=== PATIENT | female | born 1970 | race Caucasian/White ===

== ENCOUNTER 2019-06-27 08:12 | Inpatient (IN) | payer BC ==
[~2019-06-27] VITALS: Ht 165.1 cm; Wt 84.1 kg
[~2019-06-27 08:12] MED LIST: AZIT-63 PO; CARCD120C PO; DEXT15CA3 PO; FEXO-124 PO; LEVA15HF4 IH; TRIA1TAB3 PO; UNK BP MED; [UNRECOGNIZED DRUG - CODE] PO
[2019-06-27] MEDS ORDERED: ipratropium 0.5 MG/2.5ML nebule IH ONE (08:20)
[2019-06-27] MEDS ORDERED: methylPREDNISolone sod succ 125mg/2ml vial IV ONE (08:20)
[2019-06-27] MEDS ORDERED: normal saline 1000ML IV soln IVB ONE (08:20)
[2019-06-27] MEDS ORDERED: albuterol 2.5 MG/3 ML nebule CONTNEB PRN (08:20)
[2019-06-27 08:43] LABS: BASOPHILS # (AUTO) 0.1 X10'3 (0-0.2); BASOPHILS % (AUTO) 0.9 % (0-1); EOSINOPHILS # (AUTO) 2.5 X10'3 (0-0.9); HEMOGLOBIN 16.1 g/dl (12.0-16.0); LYMPHOCYTES # (AUTO) 4.5 X10'3 (1.1-4.8); LYMPHOCYTES % (AUTO) 28.7 % (21-51); MEAN CORPUSCULAR HEMOGLOBIN 30.2 PG (27.0-31.0); MEAN CORPUSCULAR HGB CONC 33.5 g/dL (33.0-36.5); MEAN CORPUSCULAR VOLUME 90.3 FL (78-98); MEAN PLATELET VOLUME 8.8 FL (7.4-10.4); MONOCYTES % (AUTO) 6.3 % (2-12); NEUTROPHILS # (AUTO) 7.5 X10'3 (1.8-7.7); NEUTROPHILS % (AUTO) 48.1 % (42-75); PLATELET COUNT 513 X10'3 (140-440); RED BLOOD COUNT 5.31 X10'6 (4.20-5.60); RED CELL DISTRIBUTION WIDTH 13.3 % (11.5-14.5); WHITE BLOOD COUNT 15.5 X10'3 (4.5-11.0)
[2019-06-27] MEDS ORDERED: ipratropium/albuterol 3ml nebule NEB ONE (08:45)
[2019-06-27 08:46] LABS: PARTIAL THROMBOPLASTIN TIME 26 SECONDS (22-32)
[2019-06-27] MEDS ORDERED: magnesium 2GM in 50ml NS 50 ML IV ONE (08:50)
[2019-06-27] MEDS ORDERED: azithromycin/NS 500mg/250ml 250 ML IV ONE (09:10)
[2019-06-27] MEDS ORDERED: CefTRIAXone 2gm/D5W 50ml 50 ML IV ONE (09:10)
[2019-06-27] MEDS ORDERED: LORazepam 2 mg/ml vial IV ONE ×2 (09:10→15:00)
[2019-06-27 09:19] LABS: ALANINE AMINOTRANSFERASE 19 U/L (12-78); ALBUMIN 3.6 G/DL (3.4-5.0); ALBUMIN/GLOBULIN RATIO 0.7 (1.1-1.5); ALKALINE PHOSPHATASE 131 IU/L (46-116); ASPARTATE AMINO TRANSFERASE 10 U/L (10-37); BILIRUBIN,TOTAL 0.2 MG/DL (0.1-1.0); BLOOD UREA NITROGEN 14 MG/DL (7-18); BUN/CREATININE RATIO 14.1 (6.6-38.0); CALCIUM 9.8 MG/DL (8.5-10.1); CREATININE 0.99 MG/DL (0.40-0.90); GLUCOSE 154 MG/DL (70-104); MAGNESIUM 2.1 MG/DL (1.5-2.4); TOTAL CARBON DIOXIDE 30.5 MMOL/L (24-32); TOTAL PROTEIN 8.6 G/DL (6.4-8.2); eGFR 59 ML/MIN
[2019-06-27 09:45] LABS: ABG BASE EXCESS -4.3 mmol/L (-2.0-3.0); ABG HCO3 22.2 mmol/L (22.0-26.0); ABG OXYGEN SATURATION 97.8 % (95-98); ABG PCO2 (T) 46.2 mmHg (35.0-45.0); ABG PH (T) 7.299 (7.350-7.450); ABG PO2 (T) 110.8 mmHg (83-108); ALLEN'S TEST POSITIVE; FCOHb 0.4 % (0.5-1.5); FMetHb 0.1 % (0.3-1.12); FO2Hb 97.3 % (94-100); RESPIRATORY RATE 22 b/min; TIDAL VOLUME 353 mL; TOTAL HEMOGLOBIN 13.6 G/dl (12.0-16.0)
[2019-06-27 10:04] LABS: ANION GAP 11 (8-16); CHLORIDE 103 MMOL/L (99-107); POTASSIUM 4.5 MMOL/L (3.5-5.1); SODIUM 144 MMOL/L (135-145)
--- NOTE | 2019-06-27 11:55 | NUR ---
DAUGHTER STATES THAT PATIENT HAS A WOUND ON THE BACK OF HER HEAD IN OCCIPUTAL AREA THAT HAS BEEN GETTING CLEANED AND DRESSED FOR THE PAST WEEK. PATIENT HAS NOT SEEN DOCTOR, BUT DAUGHTER CONCERNED THAT IT MAY BE MRSA+.
[2019-06-27] MEDS ORDERED: CITA40TA16 PO (12:59)
[2019-06-27] MEDS ORDERED: ALBU18HF2 INH (12:59)
[2019-06-27] MEDS ORDERED: BUDE10.2 INH (12:59)
[2019-06-27] MEDS ORDERED: GABA-530 PO (12:59)
[2019-06-27] MEDS ORDERED: LISI-600 PO (12:59)
[2019-06-27] MEDS ORDERED: VENL-191 PO (12:59)
[2019-06-27] MEDS ORDERED: ASPI-611 PO (12:59)
[2019-06-27] MEDS ORDERED: ondansetron/PF 4mg/2ml inj IV PRN (13:10)
[2019-06-27] MEDS ORDERED: acetaminophen 325mg tablet PO PRN (13:10)
[2019-06-27] MEDS ORDERED: mag hydrox/Alum hydrox/simeth 30ml oral suspension PO PRN (13:10)
[2019-06-27] MEDS ORDERED: magnesium hydroxide 30ml (MOM) UD suspension PO PRN (13:10)
[2019-06-27] MEDS ORDERED: ipratropium/albuterol 3ml nebule NEB PRN (13:35)
[2019-06-27] MEDS ORDERED: heparin 10,000 units/1 ML INJ IV ONE (13:50)
[2019-06-27] MEDS: methylPREDNISolone sod succ 125mg/2ml vial IV SCH ×2 (14:21→19:50)
[2019-06-27] MEDS: heparin 25,000 UNIT/250ml bag 250 ML IV SCH ×3 (14:24→22:00)
[2019-06-27] MEDS: normal saline 1000ml 1,000 ML IV SCH (14:25)
[2019-06-27] MEDS ORDERED: iohexol 350MG/ML 100ml bottle IV ONE (14:38)
[2019-06-27] MEDS: ipratropium/albuterol 3ml nebule NEB SCH ×3 (14:40→23:27)
[2019-06-27] MEDS ORDERED: aspirin 81mg tablet.DR PO ONE (16:10)
--- NOTE | 2019-06-27 16:43 | NUR ---
Patient in room PCU 3021. I have received report from Mer AGUILAR from ER and had the opportunity to ask questions and assume patient care. Received patient at 1620. Vitals obtained and patient hooked up to mobile monitoring. Pending return response. Pt. has yet to void since this AM, bladder scan shows 389 cc's in bladder. notified. Requested PRN Ativan for anxiety.
--- NOTE | 2019-06-27 16:48 | NUR ---
3025 Kylah orona - Patient has not voided since 0800, bladder scan shows 389 mls in bladder. Also, do you want to add PRN Ativan order for anxiety?Charlee RN, PCU
[2019-06-27 16:49] VITALS: BP 92/73
[2019-06-27 18:30] VITALS: BP 108/81
--- NOTE | 2019-06-27 18:38 | NUR ---
Patient in room PCU 3021. I have received report from Charlee AGUILAR and had the opportunity to ask questions and assume patient care.
--- NOTE | 2019-06-27 18:45 | NUR ---
Problems reprioritized. Patient report given, questions answered & plan of care reviewed with Zuhair AGUILAR.
[2019-06-27] MEDS: carVEDilol 3.125mg tablet PO SCH (19:50)
[2019-06-27] MEDS ORDERED: heparin, porcine 5000 units/ml vial SQ SCH (20:00)
--- NOTE | 2019-06-27 21:15 | NUR ---
Page Sent PAGER ID: [phone] MESSAGE: pt [id number] Kylah orona here for exac. asthma, resp failure, NSTEMI. Critical high 12 hr trop 8.24 pt on heparin gtt.
--- NOTE | 2019-06-27 21:44 | NUR ---
Notified Dr. Hahn regarding a critical high 12 hr trop of 8.24, advised Dr. Hahn pt is on heparin gtt protocol, Dr. Hahn wanted Dr. Soliz called. Dr. Soliz notified of trop 8.24 and pt currently on heparin gtt protocol, no new orders given.
[2019-06-27] MEDS: heparin 10,000 units/1 ML INJ IV PRN (21:57)
[2019-06-27 23:00] VITALS: BP 96/76
[2019-06-28] VITALS (14 sets, daily range): BP systolic 98–119; BP diastolic 63–79
[2019-06-28] MEDS: methylPREDNISolone sod succ 125mg/2ml vial IV SCH ×4 (01:59→19:40)
[2019-06-28] MEDS: normal saline 1000ml 1,000 ML IV SCH ×3 (02:35→19:47)
[2019-06-28] MEDS: ipratropium/albuterol 3ml nebule NEB SCH ×6 (03:30→23:50)
--- NOTE | 2019-06-28 05:46 | NUR ---
Page Sent PAGER ID: [phone] MESSAGE: pt [id number] adwoa Montero here for exac asthma, resp failure, has positive blood cultures: gram positive cocci in clusters in the aerobic
--- NOTE | 2019-06-28 05:58 | NUR ---
Dr. Jaeger notified + BC gram + cocci in clusters in aerobic bottle, received orders to repeat BC and he will order vancomycin.
[2019-06-28 06:04] LABS: BASOPHILS % (AUTO) 0.2 % (0-1); EOSINOPHILS % (AUTO) 0 % (0-6); HEMATOCRIT 35.1 % (35.0-45.0); HEMOGLOBIN 12.2 g/dl (12.0-16.0); MEAN CORPUSCULAR HGB CONC 34.8 g/dL (33.0-36.5); MEAN CORPUSCULAR VOLUME 89.3 FL (78-98); MEAN PLATELET VOLUME 9.2 FL (7.4-10.4); MONOCYTES # (AUTO) 0.2 X10'3 (0-0.9); MONOCYTES % (AUTO) 2.2 % (2-12); NEUTROPHILS # (AUTO) 9.9 X10'3 (1.8-7.7); NEUTROPHILS % (AUTO) 88.6 % (42-75); PLATELET COUNT 348 X10'3 (140-440); RED BLOOD COUNT 3.93 X10'6 (4.20-5.60); RED CELL DISTRIBUTION WIDTH 13.5 % (11.5-14.5); WHITE BLOOD COUNT 11.2 X10'3 (4.5-11.0)
[2019-06-28 06:11] LABS: ALBUMIN 2.4 G/DL (3.4-5.0); ANION GAP 8 (8-16); BLOOD UREA NITROGEN 16 MG/DL (7-18); BUN/CREATININE RATIO 23.2 (6.6-38.0); CALCIUM 7.8 MG/DL (8.5-10.1); CHLORIDE 112 MMOL/L (99-107); CREATININE 0.69 MG/DL (0.40-0.90); GLUCOSE 159 MG/DL (70-104); SODIUM 145 MMOL/L (135-145); TOTAL CARBON DIOXIDE 25.1 MMOL/L (24-32); eGFR 90 ML/MIN
--- NOTE | 2019-06-28 06:16 | NUR ---
Problems reprioritized. Patient report given, questions answered & plan of care reviewed with Angela AGUILAR.
[2019-06-28] MEDS: heparin 10,000 units/1 ML INJ IV PRN (06:23)
[2019-06-28] MEDS: heparin 25,000 UNIT/250ml bag 250 ML IV SCH (06:25)
--- NOTE | 2019-06-28 06:30 | NUR ---
Patient in room PCU 3021. I have received report from LAUREN Moffett and had the opportunity to ask questions and assume patient care.
--- NOTE | 2019-06-28 06:30 | NUR ---
Paged Dr. Jaeger re critical K. PAGER ID: [phone] MESSAGE: Pt Kylah Alba in 3021 has critical K at 3.0. Will replace per protocol. Thanks! Angela AGUILAR [phone]
[2019-06-28] MEDS ORDERED: tirofiban 5mg in NS 100mL 100 ML IV SCH ×2 (06:39→13:55)
[2019-06-28] MEDS ORDERED: potassium Cl 20 mEq SR tablet PO PRN (07:25)
[2019-06-28] MEDS ORDERED: tirofiban 5mg in NS 100mL 100 ML IV ONE (07:25)
[2019-06-28] MEDS: K and/or MAG REPLACEMENT MC SCH ×3 (07:25→20:00)
[2019-06-28] MEDS ORDERED: potassium CL 10mEq/100ml bag 100 ML IV PRN (07:25)
--- NOTE | 2019-06-28 07:30 | NUR ---
Called and spoke to pharmacist re interaction warning when ordering electrolyte replacement protocol. Pharmacist okayed order.
[2019-06-28] MEDS: tirofiban 5mg in NS 100mL 100 ML IV SCH ×3 (08:18→08:47)
[2019-06-28] MEDS: aspirin 81mg tablet.DR PO SCH (08:19)
[2019-06-28] MEDS: VANCOmycin 1250MG/NS 250ml Bag 250 ML IV SCH ×2 (08:19→19:40)
[2019-06-28] MEDS: atorvastatin 20mg tablet PO SCH (08:20)
[2019-06-28] MEDS: carVEDilol 3.125mg tablet PO SCH ×2 (08:20→19:40)
[2019-06-28] MEDS: potassium Cl 20 mEq SR tablet PO PRN ×2 (08:21→19:39)
[2019-06-28] MEDS: levoFLOXACIN-Levaquin 750MG/D5 150 ML IV SCH (08:22)
[2019-06-28 08:35] LABS: CHOL/HDL RATIO 3.9 (0.00-4.99); CHOLESTEROL 143 MG/DL (0-200); HDL CHOLESTEROL 37 MG/DL (35-60); LDL CHOLESTEROL 96 MG/DL (50-100); TRIGLYCERIDES 84 MG/DL (20-135)
[2019-06-28 10:06] LABS: URINE HCG NEGATIVE (NEG)
[2019-06-28 10:09] LABS: CLARITY,URINE SLIGHTLY CLOUDY (Clear); COLOR,URINE YELLOW (Yellow); GLUCOSE, URINE NEGATIVE (Neg); KETONES,URINE NEGATIVE (Neg); LEUKOCYTE ESTERASE ,URINE NEGATIVE (Neg); NITRITES, URINE NEGATIVE (Neg); OCCULT BLOOD,URINE NEGATIVE (Neg); PROTEIN,URINE NEGATIVE (Neg); UROBILINOGEN,URINE 0.2 E.U/dL (0.2-1.0)
[2019-06-28 10:11] LABS: UA COLLECTION TYPE NON-SPECIFIED; URINE AMPHETAMINE SCREEN POSITIVE (Neg); URINE BARBITUATE SCREEN NEGATIVE (Neg); URINE BENZODIAZEPINES SCREEN NEGATIVE (Neg); URINE CANNABINOID SCREEN NEGATIVE (Neg); URINE COCAINE SCREEN NEGATIVE (Neg); URINE METHADONE SCREEN NEGATIVE (Neg); URINE OPIATE SCREEN NEGATIVE (Neg); URINE PHENCYCLIDINE SCREEN NEGATIVE (Neg)
[2019-06-28 10:21] LABS: SQUAMOUS EPITHELIAL CELL,UR MODERATE /LPF (FEW)
[2019-06-28 10:23] LABS: BACTERIA,URINE FEW /HPF (Neg); RBC,URINE 0-2 /HPF (0-2); WBC,URINE 0-4 /HPF (0-4)
[2019-06-28 10:25] LABS: YEAST FEW /HPF (NEGATIVE)
[2019-06-28] MEDS: LORazepam 2 mg/ml vial IV PRN (10:56)
--- NOTE | 2019-06-28 11:35 | NUR ---
Paged Dr. Mccall re positive drug screen. PAGER ID: [phone] MESSAGE: Pt Kylah Alba in 302 + amphetamines in urine. Thanks! Angela AGUILAR [phone]
[2019-06-28 12:43] LABS: BASOPHILS # (AUTO) 0.1 X10'3 (0-0.2); BASOPHILS % (AUTO) 0.4 % (0-1); EOSINOPHILS % (AUTO) 0 % (0-6); HEMATOCRIT 39.2 % (35.0-45.0); HEMOGLOBIN 13.1 g/dl (12.0-16.0); LYMPHOCYTES # (AUTO) 1.2 X10'3 (1.1-4.8); LYMPHOCYTES % (AUTO) 6.9 % (21-51); MEAN CORPUSCULAR HEMOGLOBIN 29.9 PG (27.0-31.0); MEAN CORPUSCULAR HGB CONC 33.4 g/dL (33.0-36.5); MEAN CORPUSCULAR VOLUME 89.6 FL (78-98); MEAN PLATELET VOLUME 8.8 FL (7.4-10.4); MONOCYTES # (AUTO) 0.4 X10'3 (0-0.9); MONOCYTES % (AUTO) 2.2 % (2-12); NEUTROPHILS # (AUTO) 16.4 X10'3 (1.8-7.7); NEUTROPHILS % (AUTO) 90.5 % (42-75); PLATELET COUNT 433 X10'3 (140-440); RED BLOOD COUNT 4.38 X10'6 (4.20-5.60); RED CELL DISTRIBUTION WIDTH 13.6 % (11.5-14.5); WHITE BLOOD COUNT 18.2 X10'3 (4.5-11.0)
--- NOTE | 2019-06-28 13:48 | NUR ---
Called to speak to pharmacist re aggrastat order and time of Q 7 minutes. Pharmacist said order will be DCd. Addendum: 06/28/19 at 1354 by Mireille Galvez RN Phoned Melania Herrmann NP to verify order for Aggrastat. Provider stated medication must be a continuous drip. This RN phoned pharmacy to have order corrected.
[2019-06-28] MEDS ORDERED: midazolam 2 mg/2 ml injection ONE (16:06)
[2019-06-28] MEDS ORDERED: fentaNYL/PF 50MCG/1 ML 2ML syringe ONE (16:06)
[2019-06-28] MEDS ORDERED: iohexol 350MG/ML 100ml bottle IV ONE (16:07)
[2019-06-28] MEDS ORDERED: LIDOcaine 1% (10mg/ml)w/preservative injection 20ml MDV ONE (16:07)
[2019-06-28] MEDS ORDERED: nitroGLYCERIN-Tridil 50MG/D5W 250 ML IV ONE (16:10)
[2019-06-28] MEDS ORDERED: heparin 1,000unit/ml 10ml vial 10 ML ONE (16:10)
[2019-06-28] MEDS ORDERED: verapamil 2.5 mg/ml inj IV ONE (16:11)
--- NOTE | 2019-06-28 16:26 | NUR ---
Pt transported to laboratory analyst.
--- NOTE | 2019-06-28 17:00 | NUR ---
Pt returned to room post cath.
[2019-06-28] MEDS ORDERED: OXAZEpam 15mg capsule PO PRN (18:15)
[2019-06-28] MEDS ORDERED: ondansetron/PF 4mg/2ml inj IV PRN (18:15)
[2019-06-28] MEDS ORDERED: proCHLORperazine 10 MG/2 ml inj IV PRN (18:15)
--- NOTE | 2019-06-28 18:54 | NUR ---
Patient in room PCU 3021. I have received report from Angela AGUILAR and had the opportunity to ask questions and assume patient care.
[2019-06-28] MEDS: lactobacillus rhamnosus 10,000 MMU CELLS/CAPSULE PO SCH (19:41)
--- NOTE | 2019-06-28 20:00 | NUR ---
2mls at a time were released from right radial hemostatic wrist band. No bruising or bleeding noted and pulses intact. All 11mls have been released and after cuff fully deflated band was left on for an additional half hour and then taken off. Still no bleeding noted and site was covered up with a band aide.
[2019-06-29] MEDS: potassium Cl 20 mEq SR tablet PO PRN (00:06)
[2019-06-29] MEDS: methylPREDNISolone sod succ 125mg/2ml vial IV SCH ×2 (01:42→07:31)
[2019-06-29 02:00] VITALS: BP 115/78
--- NOTE | 2019-06-29 02:05 | NUR ---
Orientee documentation: I have reviewed and agree with all interventions, assessments performed and documented by Olive AGUILAR. [place] Medication Administration: For this medication-pass time frame, all medication were reviewed, dispensed, administered and documented per hospital policy by Olive AGUILAR.
[2019-06-29] MEDS: ipratropium/albuterol 3ml nebule NEB SCH ×6 (03:27→23:18)
[2019-06-29 05:57] LABS: BASOPHILS # (AUTO) 0.1 X10'3 (0-0.2); BASOPHILS % (AUTO) 0.5 % (0-1); EOSINOPHILS % (AUTO) 0 % (0-6); HEMATOCRIT 35.4 % (35.0-45.0); LYMPHOCYTES # (AUTO) 1.7 X10'3 (1.1-4.8); LYMPHOCYTES % (AUTO) 7.5 % (21-51); MEAN CORPUSCULAR HEMOGLOBIN 30.7 PG (27.0-31.0); MEAN CORPUSCULAR HGB CONC 34.1 g/dL (33.0-36.5); MEAN CORPUSCULAR VOLUME 90.3 FL (78-98); MEAN PLATELET VOLUME 8.7 FL (7.4-10.4); MONOCYTES # (AUTO) 0.6 X10'3 (0-0.9); MONOCYTES % (AUTO) 2.8 % (2-12); NEUTROPHILS # (AUTO) 20.5 X10'3 (1.8-7.7); NEUTROPHILS % (AUTO) 89.2 % (42-75); PLATELET COUNT 383 X10'3 (140-440); RED BLOOD COUNT 3.92 X10'6 (4.20-5.60); RED CELL DISTRIBUTION WIDTH 13.7 % (11.5-14.5)
[2019-06-29 06:00] VITALS: BP 120/74
[2019-06-29 06:21] LABS: ALBUMIN 2.6 G/DL (3.4-5.0); ANION GAP 8 (8-16); BLOOD UREA NITROGEN 23 MG/DL (7-18); BUN/CREATININE RATIO 26.7 (6.6-38.0); CALCIUM 8.4 MG/DL (8.5-10.1); CHLORIDE 110 MMOL/L (99-107); CREATININE 0.86 MG/DL (0.40-0.90); GLUCOSE 148 MG/DL (70-104); POTASSIUM 4.8 MMOL/L (3.5-5.1); SODIUM 141 MMOL/L (135-145); eGFR 70 ML/MIN
--- NOTE | 2019-06-29 06:27 | NUR ---
Problems reprioritized. Patient report given, questions answered & plan of care reviewed with Marissa AGUILAR.
[2019-06-29] MEDS: aspirin 81mg tablet.DR PO SCH (07:27)
[2019-06-29] MEDS: atorvastatin 20mg tablet PO SCH (07:27)
[2019-06-29] MEDS: VANCOmycin 1250MG/NS 250ml Bag 250 ML IV SCH ×2 (07:27→20:46)
[2019-06-29] MEDS: carVEDilol 3.125mg tablet PO SCH ×2 (07:28→20:39)
[2019-06-29] MEDS: lactobacillus rhamnosus 10,000 MMU CELLS/CAPSULE PO SCH ×2 (07:28→20:39)
[2019-06-29] MEDS: levoFLOXACIN-Levaquin 750MG/D5 150 ML IV SCH (07:31)
[2019-06-29] MEDS: normal saline 1000ml 1,000 ML IV SCH ×3 (07:31→22:00)
[2019-06-29] MEDS: K and/or MAG REPLACEMENT MC SCH ×2 (08:00→20:00)
[2019-06-29 11:00] VITALS: BP 120/74
[2019-06-29] MEDS: methylPREDNISolone sod succ/PF 40mg inj. IV SCH ×2 (14:55→20:51)
[2019-06-29 15:00] VITALS: BP 123/77
[2019-06-29 18:00] VITALS: BP 110/59
--- NOTE | 2019-06-29 18:01 | NUR ---
O2 Sat at rest on room air:_95__% If below 89%: Recovery O2 Sat at rest on ___LPM:___%:___% via (mask/nasal cannula, etc..) No further documentation is necessary. If O2 Sat did not drop below 89% on room air,ambulate patient on room air. O2 Sat while ambulating on room air:_84__% Recovery O2 Sat while ambulating on _2__LPM:___% No further documentation is necessary. If patient does not drop below 89% while ambulating, he/she does not qualify for home O2.
--- NOTE | 2019-06-29 18:03 | NUR ---
Problems reprioritized. Patient report given, questions answered & plan of care reviewed with [].
--- NOTE | 2019-06-29 18:20 | NUR ---
Problems reprioritized. Patient report given, questions answered & plan of care reviewed with LAUREN Blank.
--- NOTE | 2019-06-29 18:27 | NUR ---
Problems reprioritized. Patient report given, questions answered & plan of care reviewed with LAUREN Blank.
--- NOTE | 2019-06-29 18:49 | NUR ---
Patient in room PCU 3021. I have received report from LAUREN Ann and had the opportunity to ask questions and assume patient care.
[2019-06-29] MEDS ORDERED: VANCOMYCIN LEVEL IV ONE (19:30)
[2019-06-29] MEDS ORDERED: temazepam 15mg capsule PO PRN (21:00)
[2019-06-29] MEDS: lisinopril 2.5mg tablet PO SCH (21:30)
[2019-06-29 22:00] VITALS: BP 135/81
[2019-06-30] VITALS (7 sets, daily range): BP systolic 94–152; BP diastolic 61–105
--- NOTE | 2019-06-30 02:50 | NUR ---
PAGER ID: [phone] MESSAGE: Kylah Alba U [id number] requesting sleeping pill. Thanks, Molly ALEJANDRE gave a new order for Restoril. Will monitor patient closely.
[2019-06-30] MEDS: methylPREDNISolone sod succ/PF 40mg inj. IV SCH ×4 (02:57→19:34)
[2019-06-30] MEDS: ipratropium/albuterol 3ml nebule NEB SCH ×6 (03:19→23:35)
[2019-06-30] MEDS: LORazepam 2 mg/ml vial IV PRN (04:45)
--- NOTE | 2019-06-30 05:10 | NUR ---
Patient states she is feeling anxiety, short of breath, and a heaviness in her chest/upper abdomen with pain level of 5. This happened while patient was lying in bed. Denies burning pain,sharpness, or cramping. An EKG was done per protocol and showed sinus rhythm. The heart cath done on 06/28/2019 showed less than 10% stenosis and stated to be suggestive of Takotsubo. Ativan 0.5mg was given per order. Vital signs were 147/89, RR22, SpO2 was 90% on 2L NC, 97.7F, HR 87. Will continue to monitor closely.
[2019-06-30] MEDS ORDERED: furosemide 40mg/4ml inj ONE (05:48)
[2019-06-30 05:56] LABS: ABG BASE EXCESS -9.7 mmol/L (-2.0-3.0); ABG HCO3 17.5 mmol/L (22.0-26.0); ABG OXYGEN SATURATION 89.1 % (95-98); ABG PCO2 (T) 42.5 mmHg (35.0-45.0); ABG PH (T) 7.231 (7.350-7.450); ABG PO2 (T) 63.2 mmHg (83-108); ALLEN'S TEST POSITIVE; FCOHb 0.3 % (0.5-1.5); FLOW 12 L/min; FMetHb 0.2 % (0.3-1.12); FO2Hb 88.7 % (94-100); PATIENT TEMPERATURE 36.6; TOTAL HEMOGLOBIN 14.6 G/dl (12.0-16.0)
[2019-06-30 05:59] LABS: BASOPHILS # (AUTO) 0.1 X10'3 (0-0.2); BASOPHILS % (AUTO) 0.5 % (0-1); EOSINOPHILS % (AUTO) 0 % (0-6); MEAN CORPUSCULAR HEMOGLOBIN 30.9 PG (27.0-31.0); MEAN CORPUSCULAR HGB CONC 34.2 g/dL (33.0-36.5); MEAN CORPUSCULAR VOLUME 90.5 FL (78-98); MEAN PLATELET VOLUME 8.7 FL (7.4-10.4); MONOCYTES # (AUTO) 0.8 X10'3 (0-0.9); MONOCYTES % (AUTO) 2.7 % (2-12); NEUTROPHILS # (AUTO) 25.9 X10'3 (1.8-7.7); NEUTROPHILS % (AUTO) 89.8 % (42-75); PLATELET COUNT 452 X10'3 (140-440); RED CELL DISTRIBUTION WIDTH 13.7 % (11.5-14.5)
[2019-06-30] MEDS ORDERED: morphine 4 MG/ML inj SYRINge ONE (06:01)
[2019-06-30 06:04] LABS: WHITE BLOOD COUNT 28.8 X10'3 (4.5-11.0)
--- NOTE | 2019-06-30 06:05 | NUR ---
Paged Dr. Jaeger re critical WBC. PAGER ID: [phone] MESSAGE: Pt Kylah Alba in 302 has critical WBC of 28.8. Thanks! jayne AGUILAR [phone]
[2019-06-30] MEDS ORDERED: furosemide 40mg/4ml inj IV ONE (06:15)
--- NOTE | 2019-06-30 06:20 | NUR ---
Patient in room PCU 3021. I have received report from LAUREN Barnes and had the opportunity to ask questions and assume patient care.
--- NOTE | 2019-06-30 06:22 | NUR ---
Dr. Jaeger at bedside, orders received for 2mg additional morphine if most recent dose of lasix ineffective. Addendum: 06/30/19 at 0623 by Mireille Galvez RN MD ordered no bipap for pt.
[2019-06-30 06:24] LABS: ALBUMIN 2.7 G/DL (3.4-5.0); ANION GAP 8 (8-16); BLOOD UREA NITROGEN 21 MG/DL (7-18); BUN/CREATININE RATIO 27.6 (6.6-38.0); CALCIUM 8.3 MG/DL (8.5-10.1); CHLORIDE 108 MMOL/L (99-107); CREATININE 0.76 MG/DL (0.40-0.90); GLUCOSE 138 MG/DL (70-104); POTASSIUM 4.4 MMOL/L (3.5-5.1); SODIUM 138 MMOL/L (135-145); TOTAL CARBON DIOXIDE 22.2 MMOL/L (24-32); eGFR 81 ML/MIN
[2019-06-30 06:28] LABS: TROPONIN I 3.35 NG/ML (0.0-0.05)
--- NOTE | 2019-06-30 06:34 | NUR ---
Rapid Response around 0550 On arrival to bedside, the patient was 69% on 2L NC SOB RR 30, BP 136/80, HR 129, Temp 97.6F, skin color was ojeda/blue in the face, skin diaphoretic. Interventions: [Mil at bedside. Diaz Cathether with 400ml output, Lasix 4mg stat, morphine 2mg stat, and lasix 5 mins later because patient was still gurgling, Chest Xray and ABG were also taken. Blood sugar 167.] Rapid response outcome: [Vital signs 95% with face mask, RR 22, BP150/101, skin color normal, RT will place the patient on high flow.
--- NOTE | 2019-06-30 06:36 | NUR ---
Josh zuniga critical troponin. PAGER ID: [phone] MESSAGE: Liam Alba in 3021 critical trop of 3.35. Thanks! Angela [id number] Addendum: 06/30/19 at 0637 by Mireille Galvez RN Dr. Mil ding stat EKG.
--- NOTE | 2019-06-30 06:42 | NUR ---
Problems reprioritized. Patient report given, questions answered & plan of care reviewed with LAUREN Kendrick.
[2019-06-30 06:44] LABS: PLATELET ESTIMATE INCREASED; TOTAL CELLS COUNTED 100
--- NOTE | 2019-06-30 06:49 | NUR ---
Paged Dr. Jaeger re EKG completion. PAGER ID: [phone] MESSAGE: Liam Alba in 3021 EKG resulted. [phone] Addendum: 06/30/19 at 0757 by Mireille Galvez RN Dr. Jaeger arrived at bedside at 0655 to read EKG. Orders received to D/C IV fluids.
[2019-06-30] MEDS: carVEDilol 3.125mg tablet PO SCH ×2 (08:00→19:34)
[2019-06-30] MEDS: K and/or MAG REPLACEMENT MC SCH ×2 (08:00→19:33)
[2019-06-30] MEDS: levoFLOXACIN-Levaquin 750MG/D5 150 ML IV SCH (08:52)
[2019-06-30] MEDS: atorvastatin 20mg tablet PO SCH (08:53)
[2019-06-30] MEDS: lactobacillus rhamnosus 10,000 MMU CELLS/CAPSULE PO SCH ×2 (08:53→19:34)
[2019-06-30] MEDS: aspirin 81mg tablet.DR PO SCH (08:53)
[2019-06-30] MEDS ORDERED: iohexol 300mg/ml 100ml inj. ONE (11:02)
[2019-06-30] MEDS: potassium Cl 20 mEq SR tablet PO SCH (17:40)
--- NOTE | 2019-06-30 18:15 | NUR ---
Problems reprioritized. Patient report given, questions answered & plan of care reviewed with LAUREN Barnes.
[2019-06-30] MEDS: furosemide 40mg/4ml inj IV SCH (19:34)
[2019-06-30] MEDS: lisinopril 2.5mg tablet PO SCH (20:45)
--- NOTE | 2019-06-30 21:42 | NUR ---
Patient in room PCU 3021. I have received report from LAUREN Kendrick and had the opportunity to ask questions and assume patient care.
[2019-07-01] MEDS: methylPREDNISolone sod succ/PF 40mg inj. IV SCH ×3 (02:03→20:30)
[2019-07-01 02:22] VITALS: BP 92/66
[2019-07-01] MEDS: ipratropium/albuterol 3ml nebule NEB SCH ×6 (03:43→23:56)
--- NOTE | 2019-07-01 06:16 | NUR ---
Problems reprioritized. Patient report given, questions answered & plan of care reviewed with LAUREN Anderson.
--- NOTE | 2019-07-01 06:21 | NUR ---
Patient in room PCU 3021. I have received report from LAUREN Barnes and had the opportunity to ask questions and assume patient care. Patient asleep in bed and in no acute distress.
[2019-07-01 06:35] LABS: BASOPHILS % (AUTO) 0.1 % (0-1); EOSINOPHILS % (AUTO) 0 % (0-6); HEMATOCRIT 35.5 % (35.0-45.0); LYMPHOCYTES # (AUTO) 1.9 X10'3 (1.1-4.8); LYMPHOCYTES % (AUTO) 10.8 % (21-51); MEAN CORPUSCULAR HEMOGLOBIN 30.5 PG (27.0-31.0); MEAN CORPUSCULAR HGB CONC 33.9 g/dL (33.0-36.5); MEAN CORPUSCULAR VOLUME 89.9 FL (78-98); MONOCYTES # (AUTO) 0.5 X10'3 (0-0.9); MONOCYTES % (AUTO) 2.9 % (2-12); NEUTROPHILS # (AUTO) 15.3 X10'3 (1.8-7.7); NEUTROPHILS % (AUTO) 86.2 % (42-75); PLATELET COUNT 347 X10'3 (140-440); RED BLOOD COUNT 3.95 X10'6 (4.20-5.60); RED CELL DISTRIBUTION WIDTH 13.9 % (11.5-14.5); WHITE BLOOD COUNT 17.7 X10'3 (4.5-11.0)
[2019-07-01 07:00] VITALS: BP 106/70
[2019-07-01 07:01] LABS: ALBUMIN 2.5 G/DL (3.4-5.0); ANION GAP 7 (8-16); BLOOD UREA NITROGEN 25 MG/DL (7-18); BUN/CREATININE RATIO 29.4 (6.6-38.0); CALCIUM 8.3 MG/DL (8.5-10.1); CHLORIDE 103 MMOL/L (99-107); CREATININE 0.85 MG/DL (0.40-0.90); GLUCOSE 133 MG/DL (70-104); POTASSIUM 4.1 MMOL/L (3.5-5.1); SODIUM 139 MMOL/L (135-145); TOTAL CARBON DIOXIDE 28.6 MMOL/L (24-32); eGFR 71 ML/MIN
[2019-07-01] MEDS: K and/or MAG REPLACEMENT MC SCH ×2 (08:00→20:00)
[2019-07-01] MEDS: atorvastatin 20mg tablet PO SCH (08:04)
[2019-07-01] MEDS: levoFLOXACIN-Levaquin 750MG/D5 150 ML IV SCH (08:05)
[2019-07-01] MEDS: carVEDilol 3.125mg tablet PO SCH ×2 (08:05→20:30)
[2019-07-01] MEDS: aspirin 81mg tablet.DR PO SCH (08:05)
[2019-07-01] MEDS: potassium Cl 20 mEq SR tablet PO SCH ×2 (08:05→17:46)
[2019-07-01] MEDS: furosemide 40mg/4ml inj IV SCH ×2 (08:05→20:29)
[2019-07-01] MEDS: lactobacillus rhamnosus 10,000 MMU CELLS/CAPSULE PO SCH ×2 (08:05→20:29)
[2019-07-01 11:00] VITALS: BP 118/78
--- NOTE | 2019-07-01 13:11 | NUR ---
Problems reprioritized. Patient report given, questions answered & plan of care reviewed with LAUREN Galarza. Patient stable at transfer of care.
--- NOTE | 2019-07-01 14:44 | NUR ---
Initial: patient presented to ED with exacerbation of asthma, admitted for treatment of asthma exacerbation, acute respiratory failure with hypoxia, encephalopathy, pulmonary edema, sepsis, and history of meth abuse all per MD note. Pt seen at bedside with sister present provided with written and verbal protein education with RD contact information. Pt agrees to yogurt BIDBL, d/w dietary. Pt endorses a good appetite which is evident with documented average 75-100% PO intake on heart healthy diet. Pt denies food allergies and reports difficulty swallowing meat at times d/t being too tough. Pt reports she has been receiving grind meat and hasn't had any issues with it and denies further texture modification. Pt denies constipation/diarrhea. LBM 2/. Will continue to follow. Recommend: 1. continue heart healthy diet with grind meat per pt request 2. low fat yogurt BIDBL 3. continue bowel care as needed 4. weight per rx Addendum: 07/01/19 at [address] Amended: Links added.
[2019-07-01 15:00] VITALS: BP 114/70
[2019-07-01] MEDS: clindamycin 150mg capsule PO SCH ×2 (15:02→20:29)
[2019-07-01 18:00] VITALS: BP 118/75
--- NOTE | 2019-07-01 18:30 | NUR ---
Problems reprioritized. Patient report given, questions answered & plan of care reviewed with Cesia AGUILAR.
--- NOTE | 2019-07-01 18:39 | NUR ---
I have reviewed and agree with all medications administered and interventions performed by TACTICAL [employer] DEFENSE CONTROLLER Student, Melani Barahona.
--- NOTE | 2019-07-01 18:52 | NUR ---
Patient in room U 3021. I have received report from LAUREN CAMPOVERDE and had the opportunity to ask questions and assume patient care. Addendum: 07/01/19 at 1852 by Shayla Carter RN Amended: Links added.
[2019-07-01] MEDS ORDERED: VANCOMYCIN LEVEL IV ONE (19:30)
[2019-07-01] MEDS: lisinopril 2.5mg tablet PO SCH (20:30)
[2019-07-01 22:00] VITALS: BP 106/65
[2019-07-02] MEDS: clindamycin 150mg capsule PO SCH ×2 (01:39→07:47)
[2019-07-02 02:00] VITALS: BP 103/64
[2019-07-02] MEDS: ipratropium/albuterol 3ml nebule NEB SCH ×3 (02:53→11:32)
[2019-07-02 06:00] VITALS: BP 104/65
--- NOTE | 2019-07-02 06:12 | NUR ---
Problems reprioritized. Patient report given, questions answered & plan of care reviewed with LAUREN Galarza.
--- NOTE | 2019-07-02 06:13 | NUR ---
Patient in room PCU 3021. I have received report from Cesia AGUILAR and had the opportunity to ask questions and assume patient care.
[2019-07-02 06:50] LABS: BASOPHILS # (AUTO) 0.1 X10'3 (0-0.2); BASOPHILS % (AUTO) 0.6 % (0-1); EOSINOPHILS % (AUTO) 0.1 % (0-6); HEMATOCRIT 36.9 % (35.0-45.0); HEMOGLOBIN 12.8 g/dl (12.0-16.0); LYMPHOCYTES # (AUTO) 2.8 X10'3 (1.1-4.8); LYMPHOCYTES % (AUTO) 16.7 % (21-51); MEAN CORPUSCULAR HEMOGLOBIN 30.7 PG (27.0-31.0); MEAN CORPUSCULAR HGB CONC 34.8 g/dL (33.0-36.5); MEAN CORPUSCULAR VOLUME 88.4 FL (78-98); MONOCYTES # (AUTO) 0.9 X10'3 (0-0.9); MONOCYTES % (AUTO) 5.5 % (2-12); NEUTROPHILS % (AUTO) 77.1 % (42-75); PLATELET COUNT 396 X10'3 (140-440); RED BLOOD COUNT 4.18 X10'6 (4.20-5.60); RED CELL DISTRIBUTION WIDTH 13.4 % (11.5-14.5); WHITE BLOOD COUNT 16.9 X10'3 (4.5-11.0)
[2019-07-02 06:55] LABS: ALBUMIN 2.6 G/DL (3.4-5.0); ANION GAP 8 (8-16); BLOOD UREA NITROGEN 28 MG/DL (7-18); BUN/CREATININE RATIO 32.2 (6.6-38.0); CALCIUM 8.3 MG/DL (8.5-10.1); CHLORIDE 101 MMOL/L (99-107); CREATININE 0.87 MG/DL (0.40-0.90); GLUCOSE 109 MG/DL (70-104); POTASSIUM 3.4 MMOL/L (3.5-5.1); SODIUM 138 MMOL/L (135-145); TOTAL CARBON DIOXIDE 29.3 MMOL/L (24-32); eGFR 69 ML/MIN
[2019-07-02] MEDS ORDERED: potassium Cl 20 mEq SR tablet PO PRN ×2 (07:30)
[2019-07-02] MEDS: levoFLOXACIN-Levaquin 750MG/D5 150 ML IV SCH (07:47)
[2019-07-02] MEDS: furosemide 40mg/4ml inj IV SCH (07:47)
[2019-07-02] MEDS: methylPREDNISolone sod succ/PF 40mg inj. IV SCH (07:47)
[2019-07-02] MEDS: atorvastatin 20mg tablet PO SCH (07:48)
[2019-07-02] MEDS: potassium Cl 20 mEq SR tablet PO SCH ×2 (07:48→09:05)
[2019-07-02] MEDS: lactobacillus rhamnosus 10,000 MMU CELLS/CAPSULE PO SCH (07:48)
[2019-07-02] MEDS: carVEDilol 3.125mg tablet PO SCH (07:48)
[2019-07-02] MEDS: aspirin 81mg tablet.DR PO SCH (07:49)
[2019-07-02] MEDS: K and/or MAG REPLACEMENT MC SCH (08:00)
[2019-07-02 08:25] LABS: TOTAL CELLS COUNTED 100
[2019-07-02 08:27] LABS: PLATELET ESTIMATE NORMAL
[2019-07-02 08:28] LABS: LARGE PLATELETS FEW; POLYCHROMASIA 1+; TOXIC GRANULATION 1+; TOXIC VACUOLATION FEW
--- NOTE | 2019-07-02 10:15 | NUR ---
Pt ambulated 600 feet on RA, no complaints of SOB or weakness.
[2019-07-02 11:00] VITALS: BP 118/80
[2019-07-02] MEDS ORDERED: COR3.125T PO (11:32)
[2019-07-02] MEDS ORDERED: ATOR20TA66 PO (11:32)
[2019-07-02] MEDS ORDERED: FURO-150 PO (11:32)
[2019-07-02] MEDS ORDERED: LISI2.5T2 PO (11:32)
[2019-07-02] MEDS ORDERED: CLE150C PO (11:32)
[2019-07-02] MEDS ORDERED: PRED20TA PO (11:32)
[2019-07-02] MEDS ORDERED: POTA10TA36 PO (12:29)
[2019-07-02] MEDS ORDERED: METH4TAB81 PO (12:29)
--- NOTE | 2019-07-02 13:20 | NUR ---
Pt DC'd home with sister. IV removed, canula intact. Tele-box removed and returned to [employer]. Pt alert/oriented and Vital signs WNL upon DC. DC paperwork gone over with Pt and sister. Allowed both Pt and sister to ask questions concerning DC and then answered them. New prescriptions faxed over to [facility]. Pt stated that she will make follow up appt with PCP within 1 week. Pt will also make follow up appt with Dr. Barroso office within [address] Barroso office closed on weekends so nurse could not make follow up appt before DC. Pt's belongings gathered and sent with Pt. Pt wheeled down to lobby in wheelchair by aid. Pt left with sister in private vehicle for home.
== END 2019-07-02 13:25 | disposition home or self-care (01) | DRG 871 ==
LOC: ER 08:13 → ED HOLD 13:12 → PCU 3S 16:03
PROVIDERS: ADMIT Family Medicine; ATTEND Family Medicine
PROC: 5A09357 Assistance with Respiratory Ventilation, Less than 24 Consecutive Hours, Continuous Positive Airway Pressure (ICD-10-PCS; 2019-06-27)
PROC: B32T1ZZ Computerized Tomography (CT Scan) of Left Pulmonary Artery using Low Osmolar Contrast (ICD-10-PCS; 2019-06-27)
PROC: B3201ZZ Computerized Tomography (CT Scan) of Thoracic Aorta using Low Osmolar Contrast (ICD-10-PCS; 2019-06-27)
PROC: B32S1ZZ Computerized Tomography (CT Scan) of Right Pulmonary Artery using Low Osmolar Contrast (ICD-10-PCS; 2019-06-27)
PROC: 4A023N7 Measurement of Cardiac Sampling and Pressure, Left Heart, Percutaneous Approach (ICD-10-PCS; principal; 2019-06-28)
PROC: B2111ZZ Fluoroscopy of Multiple Coronary Arteries using Low Osmolar Contrast (ICD-10-PCS; 2019-06-28)
PROC: B2151ZZ Fluoroscopy of Left Heart using Low Osmolar Contrast (ICD-10-PCS; 2019-06-28)
PROC: BW2F1ZZ Computerized Tomography (CT Scan) of Neck using Low Osmolar Contrast (ICD-10-PCS; 2019-06-30)
DX: A41.9 Sepsis, unspecified organism (principal); I21.4 Non-ST elevation (NSTEMI) myocardial infarction; J96.01 Acute respiratory failure with hypoxia; J96.02 Acute respiratory failure with hypercapnia; G92 Toxic encephalopathy; J44.1 Chronic obstructive pulmonary disease with (acute) exacerbation; J45.901 Unspecified asthma with (acute) exacerbation; I51.81 Takotsubo syndrome; G93.1 Anoxic brain damage, not elsewhere classified; J81.1 Chronic pulmonary edema; T43.621A Poisoning by amphetamines, accidental (unintentional), initial encounter; E66.9 Obesity, unspecified; F32.9 Major depressive disorder, single episode, unspecified; F15.10 Other stimulant abuse, uncomplicated; E87.6 Hypokalemia; G62.9 Polyneuropathy, unspecified; I10 Essential (primary) hypertension; I25.10 Atherosclerotic heart disease of native coronary artery without angina pectoris; I25.2 Old myocardial infarction; Z88.8 Allergy status to other drugs, medicaments and biological substances; Z68.30 Body mass index [BMI] 30.0-30.9, adult; Z79.899 Other long term (current) drug therapy; Z79.82 Long term (current) use of aspirin; Y92.89 Other specified places as the place of occurrence of the external cause
CPT/HCPCS: 36415; 36600; 70491; 71045; 71275; 80048; 80053; 80061; 80202; 80305; 81001; 81025; 82803; 82948; 83605; 83735; 83880; 84145; 84484; 85018; 85025; 85610; 85730; 87040; 87070; 87077; 87081; 87186; 87502; 87503; 93005; 93306; 93458; 94640; 94660; 94760; 96365; 96366; 96368; 96375; 99152; 99291; A5120; A6258; C1769; C1894; G0378; J0456; J0696; J1644; J1940; J1956; J2001; J2060; J2250; J2270; J2920; J2930; J3010; J3246; J3370; J3475; J3490; J7030; Q9967

== ENCOUNTER 2019-08-21 01:13 | Inpatient (IN) | payer BC ==
[~2019-08-21] VITALS: Ht 170.2 cm; Wt 87.7 kg
[2019-08-21] VITALS (20 sets, daily range): BP systolic 84–117; BP diastolic 47–68
[~2019-08-21 01:13] MED LIST changes: +ALBU18HF2 INH; +ASPI-611 PO; +ATOR20TA66 PO; -AZIT-63 PO; +BUDE10.2 INH; -CARCD120C PO; +CITA40TA16 PO; +CLE150C PO; +COR3.125T PO; -DEXT15CA3 PO; +FURO-150 PO; +GABA-530 PO; -LEVA15HF4 IH; +LISI2.5T2 PO; +METH4TAB81 PO; +POTA10TA36 PO; -TRIA1TAB3 PO; -UNK BP MED; +VENL-191 PO; -[UNRECOGNIZED DRUG - CODE] PO
[2019-08-21] MEDS ORDERED: etomidate 2mg/ml inj. IV ONE (01:18)
[2019-08-21] MEDS ORDERED: rocuronium 10mg/ml inj IV ONE (01:18)
[2019-08-21] MEDS ORDERED: propofol 1000mg/100ml bottle 100 ML IV ONE (01:30)
[2019-08-21] MEDS ORDERED: albuterol 2.5 MG/3 ML nebule ONE (01:35)
[2019-08-21] MEDS ORDERED: methylPREDNISolone sod succ 125mg/2ml vial IV ONE (01:55)
[2019-08-21] MEDS ORDERED: albuterol 2.5 MG/3 ML nebule NEB ONE ×3 (01:55→02:20)
[2019-08-21 01:56] LABS: ABG BASE EXCESS -11.6 mmol/L (-2.0-3.0); ABG OXYGEN SATURATION 99.5 % (95-98); ABG PH (T) 7.106 (7.350-7.450); ALLEN'S TEST POSITIVE; FCOHb 0.1 % (0.5-1.5); FMetHb 0.4 % (0.3-1.12); PATIENT TEMPERATURE 36.2; PEEP 5 cm H2O; RESPIRATORY RATE 18 b/min; TIDAL VOLUME 425 mL; TOTAL HEMOGLOBIN 14.8 G/dl (12.0-16.0)
[2019-08-21 02:05] LABS: BASOPHILS # (AUTO) 0.2 X10'3 (0-0.2); BASOPHILS % (AUTO) 1.1 % (0-1); EOSINOPHILS # (AUTO) 2.3 X10'3 (0-0.9); EOSINOPHILS % (AUTO) 12.7 % (0-6); HEMATOCRIT 43.4 % (35.0-45.0); HEMOGLOBIN 13.8 g/dl (12.0-16.0); LYMPHOCYTES # (AUTO) 7.4 X10'3 (1.1-4.8); LYMPHOCYTES % (AUTO) 40.7 % (21-51); MEAN CORPUSCULAR HEMOGLOBIN 29.8 PG (27.0-31.0); MEAN CORPUSCULAR HGB CONC 31.8 g/dL (33.0-36.5); MEAN CORPUSCULAR VOLUME 93.6 FL (78-98); MONOCYTES # (AUTO) 0.8 X10'3 (0-0.9); MONOCYTES % (AUTO) 4.6 % (2-12); NEUTROPHILS # (AUTO) 7.5 X10'3 (1.8-7.7); NEUTROPHILS % (AUTO) 40.9 % (42-75); PLATELET COUNT 308 X10'3 (140-440); RED BLOOD COUNT 4.64 X10'6 (4.20-5.60); RED CELL DISTRIBUTION WIDTH 13.5 % (11.5-14.5); WHITE BLOOD COUNT 18.3 X10'3 (4.5-11.0)
[2019-08-21] MEDS ORDERED: magnesium 2GM in 50ml NS 50 ML IV PRN (02:20)
[2019-08-21] MEDS ORDERED: magnesium Cl slow-release 64mg tablet PO PRN (02:20)
[2019-08-21] MEDS ORDERED: morphine 2 MG/ML inj. syringe IV PRN (02:20)
[2019-08-21] MEDS ORDERED: magnesium 4gm in 100ml NS 100 ML IV PRN (02:20)
[2019-08-21] MEDS ORDERED: ondansetron/PF 4mg/2ml inj IV PRN (02:20)
[2019-08-21] MEDS ORDERED: potassium CL 10mEq/100ml bag 100 ML IV PRN (02:20)
[2019-08-21] MEDS ORDERED: potassium Cl 20 mEq SR tablet PO PRN ×2 (02:20)
[2019-08-21] MEDS ORDERED: acetaminophen 325mg tablet PO PRN (02:20)
[2019-08-21] MEDS ORDERED: LIDOcaine 2% 10ml TOPICAL JELLY (Urojet) TP ONE (02:20)
[2019-08-21] MEDS ORDERED: acetaminophen 650mg rectal suppository RC PRN (02:20)
[2019-08-21] MEDS ORDERED: morphine 4 MG/ML inj SYRINge IV PRN (02:20)
[2019-08-21] MEDS: K, MAG and/or Phos replacement - Verify level? MC SCH ×2 (02:20→06:39)
[2019-08-21 02:27] LABS: ALANINE AMINOTRANSFERASE 22 U/L (12-78); ALBUMIN 3.1 G/DL (3.4-5.0); ALBUMIN/GLOBULIN RATIO 0.8 (1.1-1.5); ALKALINE PHOSPHATASE 131 IU/L (46-116); ANION GAP 11 (8-16); ASPARTATE AMINO TRANSFERASE 26 U/L (10-37); BILIRUBIN,TOTAL 0.4 MG/DL (0.1-1.0); BLOOD UREA NITROGEN 12 MG/DL (7-18); BUN/CREATININE RATIO 10.8 (6.6-38.0); CALCIUM 8.2 MG/DL (8.5-10.1); CHLORIDE 103 MMOL/L (99-107); CREATININE 1.11 MG/DL (0.40-0.90); GLUCOSE 352 MG/DL (70-104); SODIUM 139 MMOL/L (135-145); TOTAL CARBON DIOXIDE 24.6 MMOL/L (24-32); TOTAL PROTEIN 6.9 G/DL (6.4-8.2); eGFR 52 ML/MIN
[2019-08-21 02:28] LABS: POTASSIUM 4.1 MMOL/L (3.5-5.1)
[2019-08-21 02:33] LABS: PARTIAL THROMBOPLASTIN TIME 25 SECONDS (22-32)
[2019-08-21] MEDS ORDERED: CefTRIAXone/D5W-Rocephin 1gm 50 ML IV ONE (02:35)
[2019-08-21] MEDS ORDERED: ATOR40TA PO (02:36)
[2019-08-21] MEDS ORDERED: CARV3.122 PO (02:36)
[2019-08-21 02:39] LABS: C-REACTIVE PROTEIN < 0.05 MG/DL (0.0-0.5)
[2019-08-21] MEDS ORDERED: LISI40TA4 PO (02:40)
[2019-08-21] MEDS ORDERED: ALPR-384 PO (02:53)
[2019-08-21] MEDS ORDERED: GABA-530 PO (02:53)
--- NOTE | 2019-08-21 03:15 | NUR ---
Pt had episode of hypotension with propofol drip, drip stopped for approx 30 mins pt only movement was left arm movement. BP normalized, propofol restarted.
[2019-08-21] MEDS ORDERED: CISatracurium **Bolus** 2 mg/ml inj IV PRN (03:30)
[2019-08-21] MEDS ORDERED: CISatracurium besylate inj. 200 MG in normal saline 250ml IV soln 180 ML IV PRN (03:30)
--- NOTE | 2019-08-21 03:31 | NUR ---
Called report to Judson AGUILAR, pt condition and treatment plan discussed, pt to be transported on tele by RN with medications running.
[2019-08-21] MEDS ORDERED: CISatracurium besylate inj. 100 MG in normal saline 100ml IV soln 90 ML IV PRN (03:40)
[2019-08-21 03:46] LABS: PLATELET ESTIMATE NORMAL; TOTAL CELLS COUNTED 100
[2019-08-21] MEDS ORDERED: rocuronium bromide 100mg/10ml (10mg/ml) injection IV ONE (04:00)
[2019-08-21] MEDS ORDERED: etomidate 2mg/ml inj. ONE (04:00)
--- NOTE | 2019-08-21 04:06 | NUR ---
Called Eitan Jacinto NP, regarding TTM, patient is opening eyes to voice and moving all extremities, per Eitan Jacinto NP no TTM/hypothermia management at this time
[2019-08-21] MEDS: ipratropium/albuterol 3ml nebule NEB SCH ×6 (04:28→22:52)
[2019-08-21] MEDS: midazolam 100mg in NS 100ml 100 ML IV PRN ×2 (04:47→12:29)
[2019-08-21] MEDS: FENTANYL-0.9 % NACL/PF 100 ML IV PRN ×2 (04:48→19:53)
--- NOTE | 2019-08-21 06:30 | NUR ---
Patient in room ICU 2046. I have received report from Judson AGUILAR and had the opportunity to ask questions and assume patient care.
[2019-08-21] MEDS: methylPREDNISolone sod succ/PF 40mg inj. IV SCH ×3 (07:12→20:09)
[2019-08-21] MEDS: pantoprazole 40 MG vial IV SCH (07:12)
[2019-08-21] MEDS: azithromycin/NS 500mg/250ml 250 ML IV SCH (07:12)
[2019-08-21] MEDS: enoxaparin 40mg/0.4ml syringe SUBCUT SCH (07:12)
[2019-08-21] MEDS: CefTRIAXone 2gm/D5W 50ml 50 ML IV SCH (08:00)
--- NOTE | 2019-08-21 09:21 | NUR ---
Left upper shoulder Interosseus Line removed. No abnormal bleeding or bruising at the site, sterile 4x4 applied and covered site with silk tape. Patient is intubated but grimaced and pulled away at any touch or movement of IO, so bolus of fentanyl (25mcg) given. Site is clean, dry, and intact. PIV x2 still in place.
[2019-08-21] MEDS ORDERED: ALBUTEROL INHALER 1 PUFF/90 MCG INHALER IH PRN (09:25)
[2019-08-21] MEDS ORDERED: albuterol 2.5 MG/3 ML nebule NEB PRN ×2 (09:35)
[2019-08-21 09:39] LABS: ANION GAP 10 (8-16); BLOOD UREA NITROGEN 14 MG/DL (7-18); BUN/CREATININE RATIO 14.7 (6.6-38.0); CALCIUM 8.1 MG/DL (8.5-10.1); CHLORIDE 109 MMOL/L (99-107); CREATININE 0.95 MG/DL (0.40-0.90); GLUCOSE 182 MG/DL (70-104); MAGNESIUM 1.7 MG/DL (1.5-2.4); POTASSIUM 3.4 MMOL/L (3.5-5.1); SODIUM 141 MMOL/L (135-145); TOTAL CARBON DIOXIDE 22.4 MMOL/L (24-32); eGFR 62 ML/MIN
[2019-08-21] MEDS: carVEDilol 3.125mg tablet PO SCH ×2 (09:42→20:09)
[2019-08-21] MEDS: potassium CL 10mEq/100ml bag 100 ML IV PRN ×5 (09:49→13:35)
[2019-08-21] MEDS: loratadine 10mg tablet PO SCH (09:57)
[2019-08-21] MEDS: furosemide 20MG tablet PO SCH (09:57)
[2019-08-21] MEDS: citalopram 20mg tablet PO SCH (09:57)
[2019-08-21] MEDS: atorvastatin 20mg tablet PO SCH (09:57)
[2019-08-21] MEDS: aspirin 81mg tablet.DR PO SCH (09:57)
[2019-08-21] MEDS: normal saline 1000ml 1,000 ML IV SCH (10:33)
[2019-08-21] MEDS: budesonide 0.5mg/2ml UD nebule IH SCH ×2 (11:26→19:37)
[2019-08-21 12:07] LABS: CKMB RELATIVE INDEX 3.1 RATIO (0-2.5); TROPONIN I 0.13 NG/ML (0.0-0.05)
[2019-08-21] MEDS: gabapentin 100mg capsule PO SCH ×2 (12:24→20:09)
[2019-08-21 15:52] LABS: ANION GAP 12 (8-16); BLOOD UREA NITROGEN 13 MG/DL (7-18); CHLORIDE 108 MMOL/L (99-107); GLUCOSE 152 MG/DL (70-104); MAGNESIUM 1.8 MG/DL (1.5-2.4); POTASSIUM 4.6 MMOL/L (3.5-5.1); SODIUM 140 MMOL/L (135-145); TOTAL CARBON DIOXIDE 19.9 MMOL/L (24-32); eGFR 58 ML/MIN
--- NOTE | 2019-08-21 16:09 | NUR ---
Initial: Pt intubated admit s/p cardiac arrest w/ acute respiratory failure hx COPD, asthma, HTN, and HIV. R NG in place currently NPO. TF recs below in case prolonged intubation. Receiving electrolyte replacements per protocol. Curtis 13; skin intact and no edema. Will continue to monitor. Rec: 1. IF TF; Vital High Protein at 80ml/hr 2. upon extubation; advance diet as medically indicated to heart healthy 3. routine bowel care 4. wt per rx Addendum: 08/21/19 at [address] Amended: Links added.
--- NOTE | 2019-08-21 18:14 | NUR ---
Problems reprioritized. Patient report given, questions answered & plan of care reviewed with Mirian AGUILAR.
--- NOTE | 2019-08-21 18:30 | NUR ---
Patient in room ICU 2046. I have received report from LAUREN Lloyd and had the opportunity to ask questions and assume patient care.
[2019-08-21] MEDS ORDERED: non-formulary drug (Budesonide/Formoterol Fumarate (Symbicort 160-4.5 Mcg Inhaler) 2 PUFFS INH SCH (20:00)
[2019-08-21 21:18] LABS: ANION GAP 8 (8-16); BLOOD UREA NITROGEN 14 MG/DL (7-18); BUN/CREATININE RATIO 16.3 (6.6-38.0); CALCIUM 8.8 MG/DL (8.5-10.1); CHLORIDE 109 MMOL/L (99-107); CREATINE KINASE 164 U/L (26-192); CREATININE 0.86 MG/DL (0.40-0.90); GLUCOSE 165 MG/DL (70-104); MAGNESIUM 1.6 MG/DL (1.5-2.4); POTASSIUM 4.1 MMOL/L (3.5-5.1); SODIUM 140 MMOL/L (135-145); TOTAL CARBON DIOXIDE 22.9 MMOL/L (24-32); TROPONIN I 0.11 NG/ML (0.0-0.05); eGFR 70 ML/MIN
[2019-08-21 22:36] LABS: ABG BASE EXCESS -5.8 mmol/L (-2.0-3.0); ABG HCO3 16.8 mmol/L (22.0-26.0); ABG OXYGEN SATURATION 98.4 % (95-98); ABG PCO2 (T) 26.4 mmHg (35.0-45.0); ABG PH (T) 7.424 (7.350-7.450); ABG PO2 (T) 120.4 mmHg (83-108); ALLEN'S TEST POSITIVE; FCOHb 0.3 % (0.5-1.5); FMetHb 0.2 % (0.3-1.12); FO2Hb 97.9 % (94-100); PATIENT TEMPERATURE 37.6; PEEP 5 cm H2O; RESPIRATORY RATE 22 b/min; TIDAL VOLUME 450 mL; TOTAL HEMOGLOBIN 13.1 G/dl (12.0-16.0)
[2019-08-22] VITALS (24 sets, daily range): BP systolic 88–127; BP diastolic 52–74
[2019-08-22] MEDS: normal saline 1000ml 1,000 ML IV SCH ×2 (00:04→13:47)
[2019-08-22] MEDS: methylPREDNISolone sod succ/PF 40mg inj. IV SCH ×4 (01:42→20:16)
[2019-08-22 02:52] LABS: CLARITY,URINE CLOUDY (Clear); COLOR,URINE YELLOW (Yellow); GLUCOSE, URINE NEGATIVE (Neg); KETONES,URINE NEGATIVE (Neg); LEUKOCYTE ESTERASE ,URINE NEGATIVE (Neg); NITRITES, URINE NEGATIVE (Neg); OCCULT BLOOD,URINE LARGE (Neg); PROTEIN,URINE TRACE mg/dl (Neg); UROBILINOGEN,URINE 0.2 E.U/dL (0.2-1.0)
[2019-08-22 02:58] LABS: UA COLLECTION TYPE STRAIGHT CATH
[2019-08-22 02:59] LABS: WBC,URINE 0-4 /HPF (0-4)
[2019-08-22 03:00] LABS: BACTERIA,URINE FEW /HPF (Neg); RBC,URINE 50-100 /HPF (0-2); SQUAMOUS EPITHELIAL CELL,UR FEW /LPF (FEW); URIC ACID CRYSTALS 1+ /HPF (NEGATIVE)
[2019-08-22] MEDS: midazolam 100mg in NS 100ml 100 ML IV PRN (03:40)
[2019-08-22] MEDS: ipratropium/albuterol 3ml nebule NEB SCH ×6 (03:51→23:18)
[2019-08-22 04:46] LABS: ABG BASE EXCESS -8.1 mmol/L (-2.0-3.0); ABG HCO3 14.8 mmol/L (22.0-26.0); ABG OXYGEN SATURATION 94.8 % (95-98); ABG PCO2 (T) 24.1 mmHg (35.0-45.0); ABG PH (T) 7.406 (7.350-7.450); ABG PO2 (T) 81.4 mmHg (83-108); ALLEN'S TEST POSITIVE; FCOHb 0.3 % (0.5-1.5); FMetHb 0.1 % (0.3-1.12); FO2Hb 94.4 % (94-100); PEEP 5 cm H2O; RESPIRATORY RATE 16 b/min; TIDAL VOLUME 450 mL; TOTAL HEMOGLOBIN 12.6 G/dl (12.0-16.0)
[2019-08-22 05:59] LABS: BASOPHILS % (AUTO) 0 % (0-1); EOSINOPHILS % (AUTO) 0 % (0-6); HEMATOCRIT 36.9 % (35.0-45.0); HEMOGLOBIN 12.2 g/dl (12.0-16.0); LYMPHOCYTES # (AUTO) 1.2 X10'3 (1.1-4.8); LYMPHOCYTES % (AUTO) 5.7 % (21-51); MEAN CORPUSCULAR HEMOGLOBIN 29.9 PG (27.0-31.0); MEAN CORPUSCULAR HGB CONC 33.1 g/dL (33.0-36.5); MEAN CORPUSCULAR VOLUME 90.6 FL (78-98); MEAN PLATELET VOLUME 9.5 FL (7.4-10.4); MONOCYTES # (AUTO) 0.5 X10'3 (0-0.9); MONOCYTES % (AUTO) 2.3 % (2-12); NEUTROPHILS # (AUTO) 19.4 X10'3 (1.8-7.7); PLATELET COUNT 208 X10'3 (140-440); RED BLOOD COUNT 4.08 X10'6 (4.20-5.60); RED CELL DISTRIBUTION WIDTH 13.9 % (11.5-14.5); WHITE BLOOD COUNT 21.1 X10'3 (4.5-11.0)
--- NOTE | 2019-08-22 06:15 | NUR ---
Problems reprioritized. Patient report given, questions answered & plan of care reviewed with LAUREN Lloyd.
--- NOTE | 2019-08-22 06:29 | NUR ---
Patient in room ICU 2038. I have received report from Mirian AGUILAR and had the opportunity to ask questions and assume patient care.
[2019-08-22 06:38] LABS: ALANINE AMINOTRANSFERASE 16 U/L (12-78); ALBUMIN 2.8 G/DL (3.4-5.0); ALBUMIN/GLOBULIN RATIO 0.8 (1.1-1.5); ALKALINE PHOSPHATASE 90 IU/L (46-116); ANION GAP 10 (8-16); ASPARTATE AMINO TRANSFERASE 19 U/L (10-37); BILIRUBIN,TOTAL 0.2 MG/DL (0.1-1.0); BLOOD UREA NITROGEN 14 MG/DL (7-18); BUN/CREATININE RATIO 20.3 (6.6-38.0); CALCIUM 8.7 MG/DL (8.5-10.1); CHLORIDE 108 MMOL/L (99-107); CKMB RELATIVE INDEX 2.4 RATIO (0-2.5); CREATINE KINASE 274 U/L (26-192); CREATININE 0.69 MG/DL (0.40-0.90); GLUCOSE 160 MG/DL (70-104); MAGNESIUM 1.8 MG/DL (1.5-2.4); PHOSPHORUS 3.8 MG/DL (2.3-4.5); POTASSIUM 4.2 MMOL/L (3.5-5.1); SODIUM 139 MMOL/L (135-145); TOTAL CARBON DIOXIDE 20.9 MMOL/L (24-32); TOTAL PROTEIN 6.4 G/DL (6.4-8.2); TROPONIN I 0.08 NG/ML (0.0-0.05); eGFR 90 ML/MIN
[2019-08-22] MEDS: budesonide 0.5mg/2ml UD nebule IH SCH ×2 (06:59→19:36)
[2019-08-22] MEDS: CefTRIAXone 2gm/D5W 50ml 50 ML IV SCH (07:12)
[2019-08-22] MEDS: pantoprazole 40 MG vial IV SCH (07:14)
[2019-08-22] MEDS: gabapentin 100mg capsule PO SCH ×3 (07:16→20:16)
[2019-08-22] MEDS: furosemide 20MG tablet PO SCH (07:16)
[2019-08-22] MEDS: atorvastatin 20mg tablet PO SCH (07:16)
[2019-08-22] MEDS: loratadine 10mg tablet PO SCH (07:16)
[2019-08-22] MEDS: carVEDilol 3.125mg tablet PO SCH ×2 (07:16→20:16)
[2019-08-22] MEDS: aspirin 81mg tablet.DR PO SCH (07:16)
[2019-08-22] MEDS: citalopram 20mg tablet PO SCH (07:16)
[2019-08-22] MEDS: enoxaparin 40mg/0.4ml syringe SUBCUT SCH (07:17)
[2019-08-22] MEDS: mineral oil/petrolatum ophthal oint EACHEYE SCH ×3 (07:18→20:00)
--- NOTE | 2019-08-22 07:30 | NUR ---
Patient placed on CPAP by RT; tolerating well.
[2019-08-22] MEDS: azithromycin/NS 500mg/250ml 250 ML IV SCH (07:51)
[2019-08-22] MEDS: K, MAG and/or Phos replacement - Verify level? MC SCH (07:56)
--- NOTE | 2019-08-22 09:47 | NUR ---
Spoke to patient around 0900 to go on a walk around the unit, however patient hasn't been feeling well all day "I just feel short of breath today. Lets go in the afternoon." Assisted patient back to bed, patient stated comfort, and told Dr. Moseley that patient was feeling SOB. 97% on 1LNC, breathing at a rate of 16-20, will continue to monitor. Addendum: 08/22/19 at 0948 by Prema Elias RN Incorrect patient.
[2019-08-22] MEDS ORDERED: POTA10TA36 PO (10:33)
[2019-08-22] MEDS ORDERED: IPRA3AMP31 PO (10:33)
[2019-08-22 12:31] LABS: CKMB RELATIVE INDEX 2.1 RATIO (0-2.5); TROPONIN I 0.08 NG/ML (0.0-0.05)
--- NOTE | 2019-08-22 13:13 | NUR ---
Extubated at 1305, placed on 2LNC. Patient tolerating well
--- NOTE | 2019-08-22 13:55 | NUR ---
NG removed from Right Nare after bedside swallow eval done. Patient was able to swallow appropriately, expresses some discomfort and throat soreness, but did not choke or gag.
--- NOTE | 2019-08-22 14:37 | NUR ---
Received phone call from patient's daughter, Ro. Per Ro, patient has had difficulty swallowing meat since prior intubation in 2011 and has had to have her meat chopped or ground thin since then. Will change diet accordingly.
--- NOTE | 2019-08-22 15:05 | NUR ---
Problems reprioritized. Patient report given, questions answered & plan of care reviewed with Yessica AGUILAR.
--- NOTE | 2019-08-22 15:15 | NUR ---
Received report from Prema AGUILAR.
[2019-08-22] MEDS: acetaminophen 325mg tablet PO PRN (17:46)
--- NOTE | 2019-08-22 18:22 | NUR ---
Problems reprioritized. Patient report given, questions answered & plan of care reviewed with Mirian AGUILAR.
--- NOTE | 2019-08-22 18:30 | NUR ---
Patient in room ICU 2038. I have received report from LAUREN Juan and had the opportunity to ask questions and assume patient care.
[2019-08-22 19:56] LABS: CKMB RELATIVE INDEX 1.8 RATIO (0-2.5); TROPONIN I 0.05 NG/ML (0.0-0.05)
[2019-08-22] MEDS: lactobacillus rhamnosus 10,000 MMU CELLS/CAPSULE PO SCH (20:16)
[2019-08-23] VITALS (24 sets, daily range): BP systolic 105–152; BP diastolic 60–87
[2019-08-23] MEDS: methylPREDNISolone sod succ/PF 40mg inj. IV SCH ×4 (02:04→20:42)
[2019-08-23] MEDS: normal saline 1000ml 1,000 ML IV SCH (02:04)
[2019-08-23] MEDS: ipratropium/albuterol 3ml nebule NEB SCH ×6 (03:51→23:07)
[2019-08-23 05:19] LABS: BASOPHILS % (AUTO) 0.2 % (0-1); EOSINOPHILS % (AUTO) 0 % (0-6); HEMATOCRIT 35.8 % (35.0-45.0); HEMOGLOBIN 11.8 g/dl (12.0-16.0); LYMPHOCYTES # (AUTO) 1.2 X10'3 (1.1-4.8); LYMPHOCYTES % (AUTO) 6.3 % (21-51); MEAN CORPUSCULAR HEMOGLOBIN 29.7 PG (27.0-31.0); MEAN CORPUSCULAR HGB CONC 32.8 g/dL (33.0-36.5); MEAN CORPUSCULAR VOLUME 90.5 FL (78-98); MONOCYTES # (AUTO) 0.3 X10'3 (0-0.9); MONOCYTES % (AUTO) 1.4 % (2-12); NEUTROPHILS # (AUTO) 18.1 X10'3 (1.8-7.7); NEUTROPHILS % (AUTO) 92.1 % (42-75); PLATELET COUNT 239 X10'3 (140-440); RED BLOOD COUNT 3.96 X10'6 (4.20-5.60); RED CELL DISTRIBUTION WIDTH 14.3 % (11.5-14.5); WHITE BLOOD COUNT 19.7 X10'3 (4.5-11.0)
[2019-08-23 05:45] LABS: ALANINE AMINOTRANSFERASE 19 U/L (12-78); ALBUMIN 2.7 G/DL (3.4-5.0); ALBUMIN/GLOBULIN RATIO 0.8 (1.1-1.5); ALKALINE PHOSPHATASE 84 IU/L (46-116); ANION GAP 6 (8-16); ASPARTATE AMINO TRANSFERASE 12 U/L (10-37); BILIRUBIN,TOTAL 0.2 MG/DL (0.1-1.0); BLOOD UREA NITROGEN 16 MG/DL (7-18); BUN/CREATININE RATIO 22.2 (6.6-38.0); CALCIUM 8.7 MG/DL (8.5-10.1); CHLORIDE 109 MMOL/L (99-107); CREATININE 0.72 MG/DL (0.40-0.90); GLUCOSE 141 MG/DL (70-104); PHOSPHORUS 3.4 MG/DL (2.3-4.5); POTASSIUM 3.9 MMOL/L (3.5-5.1); SODIUM 140 MMOL/L (135-145); TOTAL CARBON DIOXIDE 24.7 MMOL/L (24-32); TOTAL PROTEIN 6.1 G/DL (6.4-8.2); eGFR 85 ML/MIN
--- NOTE | 2019-08-23 06:16 | NUR ---
Problems reprioritized. Patient report given, questions answered & plan of care reviewed with LAUREN Heard.
--- NOTE | 2019-08-23 06:30 | NUR ---
Patient in room ICU 2038. I have received report from Mirian AGUILAR and had the opportunity to ask questions and assume patient care.
[2019-08-23] MEDS: budesonide 0.5mg/2ml UD nebule IH SCH ×2 (06:44→19:12)
[2019-08-23] MEDS: CefTRIAXone 2gm/D5W 50ml 50 ML IV SCH (07:24)
[2019-08-23] MEDS: pantoprazole 40 MG vial IV SCH (07:25)
[2019-08-23] MEDS: enoxaparin 40mg/0.4ml syringe SUBCUT SCH (07:28)
[2019-08-23] MEDS: citalopram 20mg tablet PO SCH (07:29)
[2019-08-23] MEDS: atorvastatin 20mg tablet PO SCH (07:29)
[2019-08-23] MEDS: gabapentin 100mg capsule PO SCH ×3 (07:29→20:42)
[2019-08-23] MEDS: loratadine 10mg tablet PO SCH (07:30)
[2019-08-23] MEDS: lactobacillus rhamnosus 10,000 MMU CELLS/CAPSULE PO SCH ×2 (07:30→20:42)
[2019-08-23] MEDS: carVEDilol 3.125mg tablet PO SCH ×2 (07:30→20:42)
[2019-08-23] MEDS: furosemide 20MG tablet PO SCH (07:30)
[2019-08-23] MEDS: aspirin 81mg tablet.DR PO SCH (07:31)
[2019-08-23] MEDS: K, MAG and/or Phos replacement - Verify level? MC SCH (07:56)
[2019-08-23] MEDS: azithromycin/NS 500mg/250ml 250 ML IV SCH (09:48)
--- NOTE | 2019-08-23 11:30 | NUR ---
Received call from patient's daughter who requests that the patient return to [facility] upon discharge as she did last month when she was discharged from here. Patient's daughter also concerned with patient's history of choking and vomiting when eating meats and breads at home since intubated in [address]. [address] Moseley on both concerns and BSS order placed and case management notified of request for [facility]. Daquan JANG states that the patient will be placed on pureed and thin liquids today and he will re-evaluate tomorrow if able to advance to chopped. Case management states that the patient's insurance requires authorization so we will get update tomorrow. Will continue to monitor.
--- NOTE | 2019-08-23 15:00 | NUR ---
Removed patient's rg catheter with ease. No bleeding or pain noted. Will continue to monitor.
[2019-08-23] MEDS: acetaminophen 325mg tablet PO PRN (15:12)
--- NOTE | 2019-08-23 18:23 | NUR ---
Patient in room ICU 2038. I have received report from LAUREN Heard and had the opportunity to ask questions and assume patient care.
--- NOTE | 2019-08-23 18:32 | NUR ---
Problems reprioritized. Patient report given, questions answered & plan of care reviewed with Mirian AGUILAR.
[2019-08-24] VITALS (22 sets, daily range): BP systolic 118–152; BP diastolic 64–87
[2019-08-24] MEDS: methylPREDNISolone sod succ/PF 40mg inj. IV SCH ×4 (02:11→20:07)
[2019-08-24] MEDS: ipratropium/albuterol 3ml nebule NEB SCH ×5 (03:05→19:07)
[2019-08-24 05:50] LABS: BASOPHILS % (AUTO) 0.1 % (0-1); EOSINOPHILS % (AUTO) 0 % (0-6); HEMATOCRIT 36.4 % (35.0-45.0); HEMOGLOBIN 11.9 g/dl (12.0-16.0); LYMPHOCYTES % (AUTO) 8.2 % (21-51); MEAN CORPUSCULAR HEMOGLOBIN 29.3 PG (27.0-31.0); MEAN CORPUSCULAR HGB CONC 32.7 g/dL (33.0-36.5); MEAN CORPUSCULAR VOLUME 89.5 FL (78-98); MEAN PLATELET VOLUME 9.1 FL (7.4-10.4); MONOCYTES # (AUTO) 0.3 X10'3 (0-0.9); MONOCYTES % (AUTO) 2.2 % (2-12); NEUTROPHILS # (AUTO) 11.3 X10'3 (1.8-7.7); NEUTROPHILS % (AUTO) 89.5 % (42-75); PLATELET COUNT 238 X10'3 (140-440); RED BLOOD COUNT 4.06 X10'6 (4.20-5.60); RED CELL DISTRIBUTION WIDTH 13.7 % (11.5-14.5); WHITE BLOOD COUNT 12.6 X10'3 (4.5-11.0)
[2019-08-24 06:03] LABS: ALANINE AMINOTRANSFERASE 17 U/L (12-78); ALBUMIN 2.7 G/DL (3.4-5.0); ALBUMIN/GLOBULIN RATIO 0.8 (1.1-1.5); ALKALINE PHOSPHATASE 87 IU/L (46-116); ANION GAP 5 (8-16); ASPARTATE AMINO TRANSFERASE 10 U/L (10-37); BILIRUBIN,TOTAL 0.2 MG/DL (0.1-1.0); BLOOD UREA NITROGEN 18 MG/DL (7-18); CALCIUM 8.5 MG/DL (8.5-10.1); CHLORIDE 108 MMOL/L (99-107); CREATININE 0.75 MG/DL (0.40-0.90); GLUCOSE 149 MG/DL (70-104); MAGNESIUM 1.9 MG/DL (1.5-2.4); PHOSPHORUS 3.5 MG/DL (2.3-4.5); POTASSIUM 3.5 MMOL/L (3.5-5.1); SODIUM 141 MMOL/L (135-145); TOTAL CARBON DIOXIDE 28.3 MMOL/L (24-32); TOTAL PROTEIN 6.1 G/DL (6.4-8.2); eGFR 81 ML/MIN
--- NOTE | 2019-08-24 06:18 | NUR ---
Problems reprioritized. Patient report given, questions answered & plan of care reviewed with LAUREN Betancourt.
--- NOTE | 2019-08-24 06:30 | NUR ---
Patient in room ICU 2038. I have received report from Mirian AGUILAR and had the opportunity to ask questions and assume patient care.
[2019-08-24] MEDS: K, MAG and/or Phos replacement - Verify level? MC SCH (06:43)
[2019-08-24] MEDS: pantoprazole 40 MG vial IV SCH (07:18)
[2019-08-24] MEDS: CefTRIAXone 2gm/D5W 50ml 50 ML IV SCH (07:22)
[2019-08-24] MEDS: enoxaparin 40mg/0.4ml syringe SUBCUT SCH (07:22)
[2019-08-24] MEDS: acetaminophen 325mg tablet PO PRN ×2 (07:25→19:18)
[2019-08-24] MEDS: gabapentin 100mg capsule PO SCH ×3 (07:27→20:06)
[2019-08-24] MEDS: atorvastatin 20mg tablet PO SCH (07:27)
[2019-08-24] MEDS: lactobacillus rhamnosus 10,000 MMU CELLS/CAPSULE PO SCH ×2 (07:27→20:06)
[2019-08-24] MEDS: aspirin 81mg tablet.DR PO SCH (07:27)
[2019-08-24] MEDS: loratadine 10mg tablet PO SCH (07:27)
[2019-08-24] MEDS: furosemide 20MG tablet PO SCH (07:27)
[2019-08-24] MEDS: carVEDilol 3.125mg tablet PO SCH ×2 (07:28→20:06)
[2019-08-24] MEDS: citalopram 20mg tablet PO SCH (07:28)
[2019-08-24] MEDS: azithromycin/NS 500mg/250ml 250 ML IV SCH (09:35)
--- NOTE | 2019-08-24 10:29 | NUR ---
Reassessment: Pt extubated advanced to pureed/thin liquids per LIVE TRUCK TECHNICIAN PO 75-100% first meals so far meeting needs. Pt to go to [facility] today per RN. No BM yet. Will continue to monitor. Rec: 1. continue pureed/thin liquid diet per LIVE TRUCK TECHNICIAN/MD; advance diet as medically indicated to heart healthy 2. routine bowel care 3. wt per rx Addendum: 08/24/19 at [address] Amended: Links added.
[2019-08-24] MEDS: budesonide 0.5mg/2ml UD nebule IH SCH ×2 (11:25→19:07)
[2019-08-24] MEDS ORDERED: PRED10TA23 PO (14:24)
[2019-08-24] MEDS ORDERED: ENOX40DI11 SUBCUT (14:24)
--- NOTE | 2019-08-24 15:36 | NUR ---
Provided report to Gui RN at [facility] , offered opportunity to ask questions. No further questions asked. Will continue to monitor until [facility] arrives. Will continue to monitor.
--- NOTE | 2019-08-24 16:00 | NUR ---
Notified by Pritesh that the transport is delayed and the patient's IV medications were discontinued. Will follow up.
--- NOTE | 2019-08-24 16:30 | NUR ---
Spoke to Dr. Hill about patient's + sputum cultures and antibiotics. Received verbal order to continue rocephin and zithromax daily. Declined ordering to restart solumederol. Discharge packet resent to [facility]. Awaiting notification of transfer. Will continue to monitor.
--- NOTE | 2019-08-24 17:30 | NUR ---
Called Raina from [facility] who states that she already requested [facility] to transport but does not have a time. Will continue to monitor.
--- NOTE | 2019-08-24 18:00 | NUR ---
Patient's gown changed, belongings gathered. Removed Right EJ PIV but left Right chest IV for [facility] and transport. Will continue to monitor.
--- NOTE | 2019-08-24 18:23 | NUR ---
Problems reprioritized. Patient report given, questions answered & plan of care reviewed with Judson AGUILAR.
== END 2019-08-24 22:00 | DRG 208 ==
LOC: ER 01:14 → ED HOLD 02:17 → ICU 2S 03:12
PROVIDERS: ATTEND Internal Medicine Critical Care Medicine
PROC: 5A12012 Performance of Cardiac Output, Single, Manual (ICD-10-PCS; principal; 2019-08-21)
PROC: 5A1945Z Respiratory Ventilation, 24-96 Consecutive Hours (ICD-10-PCS; 2019-08-21)
PROC: 0BH17EZ Insertion of Endotracheal Airway into Trachea, Via Natural or Artificial Opening (ICD-10-PCS; 2019-08-21)
DX: J96.01 Acute respiratory failure with hypoxia (principal); I46.9 Cardiac arrest, cause unspecified; J45.901 Unspecified asthma with (acute) exacerbation; D72.829 Elevated white blood cell count, unspecified; I11.0 Hypertensive heart disease with heart failure; I25.10 Atherosclerotic heart disease of native coronary artery without angina pectoris; I25.2 Old myocardial infarction; I50.9 Heart failure, unspecified; J44.9 Chronic obstructive pulmonary disease, unspecified; Z79.51 Long term (current) use of inhaled steroids; Z88.1 Allergy status to other antibiotic agents; Z88.8 Allergy status to other drugs, medicaments and biological substances; Z79.899 Other long term (current) drug therapy
CPT/HCPCS: 31500; 36415; 36556; 36600; 71045; 80048; 80053; 81001; 82550; 82553; 82803; 82948; 83605; 83735; 83880; 84100; 84145; 84484; 85018; 85025; 85610; 85730; 86140; 87070; 87077; 87081; 87186; 87502; 87503; 87635; 92508; 92616; 93005; 94002; 94003; 94640; 94667; 94668; 94760; 97110; 97161; 97530; 99291; C9113; G0378; J0456; J0696; J1650; J2704; J2920; J2930; J3010; J3480; J7030; J7626